=== PATIENT | female | born 1945 | race Caucasian/White ===

== ENCOUNTER 2016-11-27 06:09 | Emergency (ER) | payer OTHER, MEDICAID ==
[~2016-11-27] VITALS: Ht 165.1 cm; Wt 77.0 kg
[~2016-11-27 06:09] MED LIST: ACET-2128 PO; AMLO10TA80 PO; ATEN50TA PO; ATOR20TA65 PO; INSU3INS6 SUBCUT; LORA1TAB PO; MIRT15TA6 PO; SERT25TA74 PO
[2016-11-27] MEDS ORDERED: SODIUM CHLORIDE 0.9% 500 ML IV ONE (06:28)
[2016-11-27 07:19] LABS: CHLORIDE 102 mEq/L (98-107)
[2016-11-27 07:20] LABS: INR 1.3; PROTHROMBIN TIME 13.5 sec (9.4-11.6)
[2016-11-27 07:23] LABS: BASOPHILS % 1.2 % (0.0-2.0); EOSINOPHILS % 2.9 % (0.0-5.0); HEMATOCRIT. 27.6 % (36.0-48.0); HEMOGLOBIN. 9.3 g/dL (12.0-16.0); LYMPHOCYTES % 16.9 % (20.0-50.0); MEAN CORPUSCULAR HEMOGLOBIN 32.1 pg (28.0-32.0); MEAN CORPUSCULAR VOLUME 95.1 fL (81.0-99.0); MEAN PLATELET VOLUME 8.1 fl (7.4-10.4); MONOCYTES % 12.4 % (2.0-8.0); NEUTROPHILS % 66.6 % (40.0-76.0); PLATELET 123 x1000/uL (130-400); RED CELL DISTRIBUTION WIDTH 16.9 % (11.6-14.6)
[2016-11-27 07:28] LABS: CARBON DIOXIDE 28 mEq/L (21-32)
[2016-11-27] MEDS ORDERED: IBUPROFEN 800MG TABLET PO ONE (11:00)
[2016-11-27 14:30] VITALS: BP 122/63
== END 2016-11-27 14:46 | disposition home or self-care (01) ==
LOC: ER 06:09 → CANBEDREQ 13:01 → ER 14:46
DX: I95.1 Orthostatic hypotension (principal); E11.22 Type 2 diabetes mellitus with diabetic chronic kidney disease; N18.6 End stage renal disease; Z79.4 Long term (current) use of insulin; Z99.2 Dependence on renal dialysis
CPT/HCPCS: 36415; 71010; 73120; 80053; 83605; 83880; 85025; 85610; 87040; 93005; 96374; 99285; J7040; J7030

== ENCOUNTER 2017-01-24 09:44 | Emergency (ER) | payer OTHER, MEDICAID ==
[~2017-01-24] VITALS: Ht 160 cm; Wt 68.0 kg
[2017-01-24] MEDS ORDERED: IBUPROFEN 600MG TABLET PO ONE (10:45)
[2017-01-24 10:56] VITALS: BP 125/65
== END 2017-01-24 14:30 | disposition left against medical advice (07) ==
LOC: ER 09:52
DX: M54.6 Pain in thoracic spine (principal); Y92.092 Bedroom in other non-institutional residence as the place of occurrence of the external cause; Y93.89 Activity, other specified; W06.XXXA Fall from bed, initial encounter; I13.0 Hypertensive heart and chronic kidney disease with heart failure and stage 1 through stage 4 chronic kidney disease, or unspecified chronic kidney disease; I50.9 Heart failure, unspecified; I25.10 Atherosclerotic heart disease of native coronary artery without angina pectoris; E11.22 Type 2 diabetes mellitus with diabetic chronic kidney disease; N18.9 Chronic kidney disease, unspecified; Z79.4 Long term (current) use of insulin; Z96.649 Presence of unspecified artificial hip joint
CPT/HCPCS: 72070; 99284